=== PATIENT | female | born 1955 | race Caucasian/White ===

== ENCOUNTER 2019-02-19 16:18 | Emergency (ER) | payer OTHER ==
[~2019-02-19] VITALS: Ht 147.3 cm; Wt 59.0 kg
[~2019-02-19 16:18] MED LIST: ACCUNEB0.63 MG/3 IH; LAMICTAL200 MG; NAPROXEN SODIU550 MG PO; NORFLEX100 MG PO
[2019-02-19] MEDS ORDERED: PLAVIX75 MG (16:25)
[2019-02-19] MEDS ORDERED: COZAAR25 MG (16:25)
[2019-02-20] MEDS ORDERED: INTESTINEX680 M1 PO (00:26)
[2019-02-20] MEDS ORDERED: PEPCID AC20 MG PO (00:26)
[2019-02-20] MEDS ORDERED: LEVSIN/SL0.125 MG SL (00:26)
== END 2019-02-20 01:29 | disposition home or self-care (01) ==
LOC: ER 16:18
DX: K52.9 Noninfective gastroenteritis and colitis, unspecified (principal); E86.0 Dehydration

== ENCOUNTER 2020-01-12 09:12 | Emergency (ER) | payer OTHER ==
[~2020-01-12] VITALS: Ht 147.3 cm; Wt 63.0 kg
[~2020-01-12 09:12] MED LIST changes: +COZAAR25 MG; +INTESTINEX680 M1 PO; +LEVSIN/SL0.125 MG SL; +PEPCID AC20 MG PO; +PLAVIX75 MG
[2020-01-12] MEDS ORDERED: COZAAR100 MG (09:29)
[2020-01-12] MEDS ORDERED: COZAAR25 MG (09:30)
[2020-01-12] MEDS ORDERED: LAMICTAL100 MG (09:30)
[2020-01-12] MEDS ORDERED: ARICEPT5 MG (09:30)
[2020-01-12] MEDS ORDERED: LAMICTAL150 M1 (09:33)
== END 2020-01-12 10:08 | disposition home or self-care (01) ==
LOC: ER 09:12
DX: M54.5 Low back pain (principal)

== ENCOUNTER 2020-01-16 20:24 | Emergency (ER) | payer OTHER ==
[~2020-01-16] VITALS: Ht 149.9 cm; Wt 59.0 kg
[~2020-01-16 20:24] MED LIST changes: +ARICEPT5 MG; +COZAAR100 MG; +LAMICTAL100 MG; +LAMICTAL150 M1
[2020-01-17] MEDS ORDERED: NORFLEX100MG PO (00:42)
[2020-01-17] MEDS ORDERED: DICLOFENAC SODI75 MG PO (00:42)
== END 2020-01-17 01:14 | disposition home or self-care (01) ==
LOC: ER 20:24
DX: M54.5 Low back pain (principal); M25.552 Pain in left hip; M25.551 Pain in right hip

== ENCOUNTER 2020-01-19 14:36 | Outpatient (CLI) | payer OTHER ==
[~2020-01-19 14:36] MED LIST changes: +DICLOFENAC SODI75 MG PO; +NORFLEX100MG PO
== END 2020-01-19 14:38 | disposition home or self-care (01) ==
LOC: RAD 14:36
DX: R07.89 Other chest pain (principal)

== ENCOUNTER 2024-08-27 07:30 | Inpatient (IN) | payer OTHER ==
[~2024-08-27] VITALS: Ht 147.3 cm; Wt 63.5 kg
[2024-08-27] MEDS ORDERED: NAMENDA XR28 MG (08:32)
[2024-08-27] MEDS ORDERED: NORVASC5 MG (08:33)
[2024-08-27 08:34] VITALS: BP 103/62
[2024-08-27 09:27] LABS: URINE APPEARANCE Clear; URINE BILIRRUBIN Negative (NEGATIVE); URINE BLOOD Negative; URINE COLOR Yellow; URINE GLUCOSE Negative (NEGATIVE); URINE KETONE Negative (NEGATIVE); URINE LEUKOCYTE Small; URINE NITRATE Negative; URINE PROTEIN Negative (NEGATIVE); URINE UROBILINOGEN 0.2 E.U./dl
[2024-08-27 09:30] LABS: HEMATOCRIT 38.4 % (36.0-45.00); HEMOGLOBIN 12.8 g/dL (12.0-15.00); MEAN CELL VOLUME 88.5 fL (80.00-100.00); MEAN CORPUSCULAR HEMOGLOBIN 29.4 pg (27.00-32.0); MEAN CORPUSCULAR HGB CONC 33.2 g/dl (32.0-36.0); PLATELET COUNT 218 K/uL (150-450); RED BLOOD COUNT 4.34 M/uL (4.00-6.00); RED CELL DISTRIBUTION WIDTH 13.7 % (11.5-14.5)
[2024-08-27 09:32] LABS: URINE BACTERIA 31.4 uL (0.0-1933); URINE EPITHELIAL CELLS 10.1 uL (0.0-38.8); URINE WBC 13.8 uL (0.0-23.2)
[2024-08-27 09:55] LABS: INR 1.06; PARTIAL THROMBOPLASTIN TIME 32.2 SECONDS (22.0-34.0); PROTHROMBIN TIME 11.5 SECONDS (9.0-11.5)
[2024-08-27 10:03] LABS: BILIRUBIN TOTAL 0.58 mg/dL (0.3-1.2); CALCIUM 9.5 mg/dL (8.5-10.1); CREATININE SERUM 1.11 mg/dL (0.55-1.02); GFR 48.88; GLOBULINA 3.5 G/DL (2.4-3.5); POTASSIUM 4.07 mEq/L (3.5-5.1); TOTAL PROTEIN 7.5 gm/dL (6.4-8.2)
[2024-09-01] MEDS ORDERED: OxyCODONE HCL/APAP UD (PERCOCET) PO PRN (08:00)
[2024-09-01] MEDS ORDERED: ONDANSETRON HCL 2 MG/ML VIAL IV PRN (08:00)
[2024-09-01] MEDS ORDERED: KETOROLAC TROMETHAMINE 30 MG VIAL IV ONE (08:45)
[2024-09-01] MEDS ORDERED: TRANEXAMIC ACID 1,000 MG in 0.9 % SODIUM CHLORIDE 100 ML IV ONE (08:45)
[2024-09-01] MEDS ORDERED: LIDOCAINE HCL 1%/EPINEPHRINE 20ML VIAL IJ ONE (08:45)
[2024-09-01] MEDS ORDERED: KETOROLAC TROMETHAMINE 30 MG VIAL IM ONE (08:45)
[2024-09-01] MEDS ORDERED: MORPHINE SULFATE 4 MG/ML VIAL IV ONE ×3 (08:45→10:40)
[2024-09-01] MEDS ORDERED: BUPIVACAINE HCL 30 ML VIAL IJ ONE (08:45)
[2024-09-01] MEDS ORDERED: CEFAZOLIN SODIUM 1,000 MG in 0.9 % SODIUM CHLORIDE 50 ML IV ONE (08:45)
[2024-09-01] MEDS ORDERED: APIXABAN 2.5 MG TABLET PO SCH (09:00)
[2024-09-01] MEDS ORDERED: ENOXAPARIN SODIUM 30 MG/0.3 ML SYRINGE SUBCUTANEO SCH (09:00)
[2024-09-01] MEDS ORDERED: HYDROCHLOROTHIA25 MG (10:33)
[2024-09-01] MEDS ORDERED: MORPHINE SULFATE 4 MG/ML CARTRIDGE IV SCH (12:00)
[2024-09-01] MEDS ORDERED: CEFAZOLIN SODIUM 1,000 MG VIAL IV SCH (12:00)
[2024-09-01 13:07] VITALS: BP 103/62
[2024-09-01 16:00] VITALS: BP 103/55
[2024-09-01] MEDS ORDERED: GABAPENTIN 100 MG CAPSULE PO SCH (21:00)
[2024-09-01] MEDS ORDERED: ORPHENADRINE CITRATE 100 MG TABLET PO SCH (21:00)
[2024-09-02 01:38] VITALS: BP 120/68
[2024-09-02 02:16] LABS: HEMATOCRIT 29.7 % (36.0-45.00); HEMOGLOBIN 10.1 g/dL (12.0-15.00); MEAN CELL VOLUME 87.1 fL (80.00-100.00); MEAN CORPUSCULAR HEMOGLOBIN 29.7 pg (27.00-32.0); MEAN CORPUSCULAR HGB CONC 34.1 g/dl (32.0-36.0); PLATELET COUNT 159 K/uL (150-450); RED BLOOD COUNT 3.41 M/uL (4.00-6.00); RED CELL DISTRIBUTION WIDTH 14.3 % (11.5-14.5)
[2024-09-02 08:04] VITALS: BP 127/66
[2024-09-02] MEDS ORDERED: SOD FERRIC GLUC COMPLX/SUCROSE 62.5 MG/5 ML AMPUL IV SCH (12:00)
[2024-09-02] MEDS ORDERED: Cyanocobalamin/Mecobalamin 1 TAB.SL SL SCH (12:00)
[2024-09-02 12:58] VITALS: BP 150/70
[2024-09-02 16:28] VITALS: BP 140/72
[2024-09-02] MEDS ORDERED: VITAMIN B COMPLEX 1 EACH PO SCH (17:00)
[2024-09-03 00:45] LABS: HEMATOCRIT 30.7 % (36.0-45.00); HEMOGLOBIN 10.4 g/dL (12.0-15.00); MEAN CORPUSCULAR HEMOGLOBIN 29.6 pg (27.00-32.0); PLATELET COUNT 146 K/uL (150-450); RED BLOOD COUNT 3.53 M/uL (4.00-6.00); RED CELL DISTRIBUTION WIDTH 13.9 % (11.5-14.5)
[2024-09-03 01:53] VITALS: BP 130/80
[2024-09-03 08:34] VITALS: BP 123/87
[2024-09-03] MEDS ORDERED: ACETAMINOPHEN 500 MG GEL..CAP PO STA (12:29)
[2024-09-03 12:58] LABS: PH,URINE 7.5 (5.0-8.0); URINE APPEARANCE Clear; URINE BILIRRUBIN Negative (NEGATIVE); URINE BLOOD Negative; URINE COLOR Yellow; URINE EPITHELIAL CELLS 6.9 uL (0.0-38.8); URINE GLUCOSE Negative (NEGATIVE); URINE KETONE Negative (NEGATIVE); URINE LEUKOCYTE Negative; URINE NITRATE Negative; URINE PROTEIN Negative (NEGATIVE); URINE RBC 11.1 uL (0.0-20.8); URINE UROBILINOGEN 0.2 E.U./dl; URINE WBC 13.2 uL (0.0-23.2)
[2024-09-03 16:10] VITALS: BP 149/78
== END 2024-09-03 20:18 | DRG 470 ==
LOC: O/R 09-01 06:15 → OB/GYN 09-01 06:15 → SURH 09-01 07:30 → OB/GYN 09-01 10:51 → SURH 09-01 13:00 → OB/GYN 09-03 20:18
PROVIDERS: Internal Medicine; ADMIT Orthopaedic Surgery; ATTEND Orthopaedic Surgery
PROC: 0SRC0JZ Replacement of Right Knee Joint with Synthetic Substitute, Open Approach (ICD-10-PCS; principal; 2024-09-01 13:00)
DX: M17.11 Unilateral primary osteoarthritis, right knee (principal); M85.661 Other cyst of bone, right lower leg